=== PATIENT | male | born 1995 | race Caucasian/White ===

== ENCOUNTER 2019-04-22 18:48 | Emergency (ER) | payer OTHER ==
[~2019-04-22] VITALS: Ht 182.9 cm; Wt 99.8 kg
[~2019-04-22 18:48] MED LIST: HYDROCODONE-AP1 EAC6 PO
[2019-04-22] MEDS ORDERED: BACTRIM DS TAB1 EACH PO (19:32)
[2019-04-22] MEDS ORDERED: KEFLEX500 M1 PO (19:32)
[2019-04-22] MEDS ORDERED: CLOTRIMAZOLE 1%15 G1 TOP (19:32)
[2019-04-22 19:52] VITALS: BP 116/71
== END 2019-04-22 19:53 | disposition home or self-care (01) ==
LOC: M.ERS 18:48
DX: B35.3 Tinea pedis (principal); L03.314 Cellulitis of groin; F17.210 Nicotine dependence, cigarettes, uncomplicated

== ENCOUNTER 2019-08-10 22:06 | Emergency (ER) | payer OTHER ==
[~2019-08-10] VITALS: Ht 182.9 cm; Wt 102.5 kg
[~2019-08-10 22:06] MED LIST changes: +BACTRIM DS TAB1 EACH PO; +CLOTRIMAZOLE 1%15 G1 TOP; +KEFLEX500 M1 PO
[2019-08-10 22:18] VITALS: BP 139/89
[2019-08-10] MEDS ORDERED: NYSTATIN15 G3 TOP (22:26)
== END 2019-08-10 22:35 | disposition home or self-care (01) ==
LOC: M.ERS 22:06
DX: B35.6 Tinea cruris (principal); F17.210 Nicotine dependence, cigarettes, uncomplicated